=== PATIENT | female | born 1990 | race Caucasian/White ===

== ENCOUNTER 2024-06-18 17:05 | Emergency (ER) | payer MEDICAID ==
[~2024-06-18] VITALS: Ht 152.4 cm; Wt 57.0 kg
[2024-06-18 17:10] VITALS: O2SAT 100
[2024-06-18 17:34] VITALS: TEMP 36.9
[2024-06-18 17:46] LABS: BASOPHILS % 0.5 % (0.0-2.0); DIFFERENTIAL COMMENT 0; EOSINOPHILS % 2.7 % (0.0-5.0); HEMOGLOBIN. 11.9 g/dL (12.0-16.0); MEAN CORPUSCULAR HEMOGLOBIN 31.4 pg (28.0-32.0); MEAN CORPUSCULAR HGB CONC 33.9 g/dL (31.0-37.0); MEAN CORPUSCULAR VOLUME 92.5 fL (81.0-99.0); MEAN PLATELET VOLUME 9.7 fl (7.4-10.4); MONOCYTES % 6.5 % (2.0-8.0); NEUTROPHILS % 67.3 % (40.0-76.0); PLATELET 225 x1000/uL (130-400); RED BLOOD CELL COUNT 3.79 mill/uL (4.2-5.4); RED CELL DISTRIBUTION WIDTH 13.1 % (11.6-14.6); WHITE BLOOD COUNT 7.5 x1000/uL (4.5-11.0)
[2024-06-18 17:50] LABS: CHLORIDE 104 mEq/L (98-107); POTASSIUM 3.4 mEq/L (3.5-5.1); SODIUM 136 mEq/L (136-145)
[2024-06-18 17:51] LABS: CALCIUM 9.2 mg/dL (8.7-10.4); CARBON DIOXIDE 21 mEq/L (21-32)
[2024-06-18 17:56] LABS: CREATININE 0.5 mg/dL (0.6-1.0); GLUCOSE 75 mg/dL (70-105); UREA NITROGEN BLOOD 6 mg/dL (9-23)
[2024-06-18 18:18] LABS: B-HCG QUANTITATIVE 10014 mIU/mL (<6)
[2024-06-18 18:49] LABS: COLOR URINE YELLOW (YELLOW); GLUCOSE URINE NEGATIVE (NEGATIVE); KETONES URINE 2+ (NEGATIVE); LEUKOCYTE ESTERASE URINE 3+ (NEGATIVE); NITRITE URINE NEGATIVE (NEGATIVE); OCCULT BLOOD URINE NEGATIVE (NEGATIVE); PROTEIN URINE NEGATIVE (NEGATIVE); SPECIFIC GRAVITY URINE 1.017 (1.005-1.030)
[2024-06-18 19:25] LABS: CLARITY URINE HAZY (CLEAR)
[2024-06-18 19:28] LABS: RBC URINE NONE SEEN /hpf (0-2); SQUAMOUS EPITHELIAL CELL URINE 1+ /lpf (RARE/1+)
[2024-06-18 19:29] LABS: BACTERIA URINE 1+
[2024-06-18 19:59] VITALS: BP 119/68; PULSE 76; RESP 20; O2SAT 98
== END 2024-06-18 19:59 | disposition left against medical advice (07) ==
LOC: ER 17:05
DX: O62.9 Abnormality of forces of labor, unspecified (principal); Z3A.27 27 weeks gestation of pregnancy
CPT/HCPCS: 36415; 76805; 80048; 81003; 81025; 84702; 85025; 86850; 86900; 99284